=== PATIENT | female | born 2000 | race Caucasian/White ===

== ENCOUNTER 2023-10-31 12:06 | Emergency (ER) | payer SELFPAY ==
[~2023-10-31] VITALS: Ht 165.1 cm; Wt 51.7 kg
[2023-10-31 12:11] VITALS: BP_SYST 113; PULSE 91; RESP 26; TEMP 98.3; O2SAT 97
[2023-10-31 13:16] LABS: COVID19 ANTIGEN SOFIA FIA NEGATIVE (NEGATIVE)
[2023-10-31 13:17] LABS: INFLUENZA TYPE A Negative (NEGATIVE)
[2023-10-31 13:19] LABS: INFLUENZA TYPE B POSITIVE (NEGATIVE)
[2023-10-31] MEDS ORDERED: OSEL75CA PO ×2 (13:25→15:13)
[2023-10-31] MEDS ORDERED: IBUP-1969 PO ×2 (13:25→15:13)
== END 2023-10-31 13:36 | disposition home or self-care (01) ==
LOC: SED 12:06
DX: J10.1 Influenza due to other identified influenza virus with other respiratory manifestations (principal); Z20.822 Contact with and (suspected) exposure to COVID-19
CPT/HCPCS: 36415; 71045; 99284